=== PATIENT | male | born 1995 | race Caucasian/White ===

== ENCOUNTER → 2018-08-10 | Outpatient (REF) | payer BC ==
[~2018-08-10] MED LIST: ALB18R INH; PRED20TA6 PO; zicam PO
[2018-08-10 11:33] LABS: PLATELET COUNT, AUTOMATED 283 K/uL (150-450)
== END ==
PROVIDERS: ATTEND Nurse Practitioner Family
DX: R10.9 Unspecified abdominal pain (principal)
CPT/HCPCS: 82040; 82247; 82310; 82374; 82435; 82565; 82947; 84075; 84132; 84155; 84295; 84450; 84460; 84520; 85025

== ENCOUNTER → 2018-08-10 | Outpatient (CLI) | payer BC ==
--- NOTE | 2018-08-10 13:38 | RADIOLOGY IMAGING REPORT ---
FACILITY: [facility] - [place] PATIENT NAME: Kofi Davis : 1995 MR: [id number] V: [id number] EXAM DATE: ORDERING PHYSICIAN: KOFI BUCKNER TECHNOLOGIST: Location: [facility] [place] Patient: Kofi Davis : 1995 Visit/Account:[id number] Date of Sevice: 08/10/2018 Limited abdominal ultrasound INDICATION: Lower abdominal pain. Previous hernia repair. Evaluate for hernias. COMPARISON: None available FINDINGS: Transabdominal ultrasound evaluation the right lower abdomen left lower abdomen. No indic ation of hernia. No focal mass or fluid collection. No focal abnormality. IMPRESSION: No focal abnormality or indication of hernia. Report Dictated By: Everett Cano at 08/10/2018 1:30 PM Report E-Signed By: Everett Cano at 08/10/2018 1:34 PM WSN:[id number]
== END ==
LOC: US 11:51
PROVIDERS: ATTEND Nurse Practitioner Family
DX: R10.31 Right lower quadrant pain (principal)
CPT/HCPCS: 76705